=== PATIENT | female | born 1990 | race Two or more races ===

== ENCOUNTER 2023-02-12 16:00 | Emergency (ER) | payer OTHER ==
[2023-02-12 16:16] VITALS: BP 146/75; O2SAT 98
[2023-02-12] MEDS ORDERED: BUFFERED LIDOCAINE 10 ML SYRINGE SUBQ STA (16:40)
--- NOTE | 2023-02-12 17:09 | ED Physician Documentation ---
PD HPI UPPER EXT INJURY - Stated complaint Stated Complaint: RT FINGER LAC - Chief complaint Chief Complaint: Ext Problem - History obtained from History obtained from: Patient - Additonal information Additional information: Patient is a 32-year-old female presenting for evaluation of laceration to her right index finger as she was cleaning a brand-new kitchen knife. She is active duty [employer] and thus believes her tetanus is up-to-date. She is not on a blood thinner. This occurred just prior to arrival. Bleeding is controlled with pressure. Review of Systems Constitutional: denies: Fever Skin: reports: Laceration (s) PD PAST MEDICAL HISTORY - Allergies Allergies/Adverse Reactions: Allergies Allergy/AdvReac Type Severity Reaction Status Date / Time No Known Drug Allergies Allergy Verified 02/12/23 16:08 PD ED PE NORMAL - General General: Alert and oriented X 3, No acute distress, Well developed/nourished - HEENT HEENT: Atraumatic - Respiratory Respiratory: No respiratory distress - Extremities Extremities: No tenderness to palpate, Normal ROM s pain, Other (1.5 cm laceration to proximal right index finger on the dorsal aspect) Results - Vitals Vitals: Vital Signs - 24 hr 02/12/23 16:05 Temperature 36.9 C Heart Rate 86 Respiratory 20 Rate Blood Pressure 146/75 H O2 Saturation 98 Oxygen O2 Source Room air Procedures - Laceration (location) R index finger Length in cm: 2 Wound type: Linear, Clean Neurovascular status: Sensory intact, Motor intact, Vascular intact Tendon involvement: Tendon intact Anesthesia: Lidocaine 1% Wound preparation: Hibiclens, Irrigated copiously NS Skin layer closure: Size #-0 - enter number (4), Sutures - enter # (4) Other: Patient tolerated well, No complications, Neurovascular intact, Dressing applied, Tetanus UTD PD Medical Decision Making - ED course ED course: Patient is a 32-year-old female presenting for evaluation of right index finger laceration. Patient's tetanus is up-to-date. No signs of tendon injury. Neurovascularly intact. Wound was cleaned and thoroughly irrigated. 4 sutures were placed which she tolerated well. Dressing was applied. Patient counseled regarding wound care instructions as well as concerning symptoms to return for. Departure - Departure Disposition: 01 Home, Self Care Clinical Impression: Laceration of right index finger Condition: Stable Instructions: ED Laceration Ext Sutr Stap Tape Follow-Up: MAYO Mendozanaomie Resendiz [Provider Group] Comments: Come back for any signs of infection which would include: Redness, swelling, drainage, increased pain, or fevers. You can wash it soap and water. Keep it covered and moist with bacitracin ointment which is available over the counter; avoid neosporin. Follow-up with your physician in about 7 days for suture removal. Forms: PCP List, Activity restrictions
== END 2023-02-12 17:16 | disposition home or self-care (01) ==
LOC: ED 16:00
DX: S61.210A Laceration without foreign body of right index finger without damage to nail, initial encounter (principal); W26.0XXA Contact with knife, initial encounter; Y93.G1 Activity, food preparation and clean up
CPT/HCPCS: 12001; 99282

== ENCOUNTER 2024-01-08 19:00 | Emergency (ER) | payer OTHER ==
[2024-01-08 19:29] VITALS: BP 141/78; O2SAT 100
--- NOTE | 2024-01-08 20:09 | ED Physician Documentation ---
History of Present Illness - Stated complaint Stated Complaint: ALLERGIC REACTION - Chief complaint Chief Complaint: General - History obtained from History obtained from: Patient - Additonal information Additional information: Otherwise healthy 33-year-old woman has a cat allergy and she was on a civilian flight 2 days ago where there happened to be a cat on board near her. Since then she has been quite itchy all over but without hives. She feels like she has a sore throat there is no possibility of . She tried Benadryl without relief. PD PAST MEDICAL HISTORY - Past Medical History Past Medical History: Yes Cardiovascular: None Respiratory: None Neuro: Migraines Endocrine/Autoimmune: None GI: None FINANCE DIRECTOR: None : None HEENT: None Psych: None Musculoskeletal: None Derm: None - Past Surgical History Past Surgical History: Yes - Present Medications Home Medications: Ambulatory Orders Medication Instructions Recorded Confirmed Doxepin [SINEquan] 0.5 tab PO Q6H PRN #10 cap 01/08/24 SUMAtriptan [Imitrex] 25 mg PO DAILY 01/08/24 predniSONE [Deltasone] 60 mg PO DAILY 5 Days #15 tablet 01/08/24 - Allergies Allergies/Adverse Reactions: Allergies Allergy/AdvReac Type Severity Reaction Status Date / Time No Known Drug Allergies Allergy Verified 01/08/24 19:13 - Social History Does the pt smoke?: No Smoking Status: Never smoker Does the pt drink ETOH?: No Does the pt have substance abuse?: No - Immunizations Immunizations are current?: Yes - POLST Patient has POLST: No PD ED PE NORMAL - Vitals Vital signs reviewed: Yes - General General: Alert and oriented X 3, No acute distress - HEENT HEENT: Pharynx benign, Other (Mild bilateral allergic conjunctivitis.) - Cardiac Cardiac: RRR, No murmur - Respiratory Respiratory: No respiratory distress, Clear bilaterally - Abdomen Abdomen: Non tender Results - Vitals Vitals: Vital Signs - 24 hr 01/08/24 19:07 Temperature 36.3 C L Heart Rate 75 Respiratory 16 Rate Blood Pressure 141/78 H O2 Saturation 100 Oxygen O2 Source Room air PD Medical Decision Making - ED course ED course: She is allergic symptoms related to exposure to a cat. We will start her on prednisone and doxepin. Departure - Departure Disposition: 01 Home, Self Care Clinical Impression: Allergic reaction Qualifiers: Encounter type: initial encounter Qualified Code(s): T78.40XA - Allergy, unspecified, initial encounter Instructions: ED Allergic Reaction General Other Prescriptions: predniSONE [Deltasone] 60 mg PO DAILY 5 Days #15 tablet Doxepin [SINEquan] 0.5 tab PO Q6H PRN #10 cap PRN Reason: Itching Comments: I sent your prescriptions electronically to the [facility] in [place]. Call your doctor to arrange a follow-up appointment, make the next available appointment. In the interim, return anytime if worse or if new symptoms develop.
[2024-01-08] MEDS: predniSONE 20 MG TABLET PO STA (20:17)
[2024-01-08] MEDS: DOXEPIN 25 MG CAPSULE PO STA (20:26)
== END 2024-01-08 20:30 | disposition home or self-care (01) ==
LOC: ED 19:00
DX: J30.81 Allergic rhinitis due to animal (cat) (dog) hair and dander (principal)
CPT/HCPCS: 99283; A9270; J7512

== ENCOUNTER 2024-02-29 04:30 | Emergency (ER) | payer OTHER ==
--- NOTE | 2024-02-29 04:51 | ED Physician Documentation ---
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 Denies neurological deficits. She did take Imitrex and topiramate at home without relief. PD PAST MEDICAL HISTORY - Past Medical History Past Medical History: Yes Cardiovascular: None Respiratory: None Neuro: Migraines Endocrine/Autoimmune: None GI: None POT TENDER: None : None HEENT: None Psych: None Musculoskeletal: None Derm: None - Past Surgical History Past Surgical History: Yes - Present Medications Home Medications: Ambulatory Orders Medication Instructions Recorded Confirmed Doxepin [SINEquan] 0.5 tab PO Q6H PRN #10 cap 01/08/24 SUMAtriptan [Imitrex] 25 mg PO DAILY 01/08/24 predniSONE [Deltasone] 60 mg PO DAILY 5 Days #15 tablet 01/08/24 - Allergies Allergies/Adverse Reactions: Allergies Allergy/AdvReac Type Severity Reaction Status Date / Time No Known Drug Allergies Allergy Verified 02/29/24 04:37 - Social History Does the pt smoke?: No Smoking Status: Never smoker Does the pt drink ETOH?: No Does the pt have substance abuse?: No - Immunizations Immunizations are current?: Yes - POLST Patient has POLST: No PD ED PE NORMAL - Vitals Vital signs reviewed: Yes - General General: Alert and oriented X 3, No acute distress, Well developed/nourished - HEENT HEENT: Atraumatic, PERRL, EOMI, Moist mucous membranes, Pharynx benign - Neck Neck: Supple, no meningeal sign - Cardiac Cardiac: RRR - Respiratory Respiratory: No respiratory distress, Clear bilaterally Results - Vitals Vitals: Vital Signs - 24 hr 02/29/24 04:35 Temperature 36.5 C Heart Rate 80 Respiratory 18 Rate Blood Pressure 135/92 H O2 Saturation 98 Oxygen O2 Source Room air PD Medical Decision Making - ED course ED course: 33-year-old woman presents with migraine headache, unrelieved with Imitrex and topiramate at home. IM Toradol provided with improvement in symptoms. Patient Declines migraine cocktail. Return precautions given. Plan to follow-up outpatient with her primary care provider. Departure - Departure Disposition: 01 Home, Self Care Clinical Impression: Headache Condition: Stable Instructions: ED Headache Migraine Comments: You were seen in the emergency department for headache and received a toradol shot. Please follow-up with your primary care provider and return to the emergency department if you have any new or worsening symptoms or other concerns. Forms: PCP List, Activity restrictions
[2024-02-29] MEDS: KETOROLAC 30 MG/ML VIAL IM STA (05:06)
[2024-02-29 05:20] VITALS: BP 147/69; O2SAT 100
== END 2024-02-29 05:11 | disposition home or self-care (01) ==
LOC: ED 04:30
DX: G43.909 Migraine, unspecified, not intractable, without status migrainosus (principal)
CPT/HCPCS: 96372; 99283